=== PATIENT | male | born 1975 | race African-American/Black ===

== ENCOUNTER 2016-10-03 20:20 | Emergency (ER) | payer BC ==
[~2016-10-03] VITALS: Ht 193 cm; Wt 114.6 kg
[~2016-10-03 20:20] MED LIST: INDOCIN25 MG PO; NORCO 7.5/321 TABLET PO
[2016-10-03 20:54] LABS: HEMATOCRIT 44.8 % (38.0-50.0); MCH 29.9 PG (29.0-34.0); MCHC 35.7 G/DL (30.0-36.0); MCV 83.7 FL (86-99); MEAN PLAT.VOLUME 9.9 uM^3 (9.0-12.4); PLATELET COUNT 240 K/uL (156-360); RBC DIS.WIDTH-SD 39.1 % (39-53); RED BLOOD COUNT 5.35 M/uL (4.00-5.50); WHITE BLOOD COUNT 9.7 K/uL (4.1-10.2)
[2016-10-03 21:03] LABS: CHLORIDE 105 mEq/L (99-109); POTASSIUM 3.8 mEq/L (3.7-5.4); SODIUM 140 mEq/L (136-147)
[2016-10-03 21:05] LABS: GLUCOSE 103 mg/dL (70-99)
[2016-10-03 21:06] LABS: ANION GAP 10 MEQ/L (2-14)
[2016-10-03 21:08] LABS: GFR ESTIMATE (CALCULATED) > 59 mL/min/
[2016-10-03 21:09] LABS: UREA NITROGEN (BUN) 13 mg/dL (9-23)
[2016-10-03 21:16] LABS: TROP-I INTERPRETATION NEGATIVE; TROPONIN-I < 0.01 ng/mL (0.0-0.30)
[2016-10-03 23:27] LABS: TROP-I INTERPRETATION NEGATIVE; TROPONIN-I < 0.01 ng/mL (0.0-0.30)
[2016-10-04 02:34] VITALS: BP 137/86
== END 2016-10-04 02:35 | disposition home or self-care (01) ==
LOC: EME 20:20
PROVIDERS: Emergency Medicine
DX: R07.9 Chest pain, unspecified (principal); I10 Essential (primary) hypertension; Z87.891 Personal history of nicotine dependence
CPT/HCPCS: 71020; 71275; 80048; 84484; 85027; 93005; 99281; 99285

== ENCOUNTER 2018-05-11 04:48 | Observation (INO) | payer BC ==
[~2018-05-11] VITALS: Ht 190.5 cm; Wt 124.8 kg
[2018-05-11 05:43] LABS: HEMATOCRIT 40.9 % (38.0-50.0); HEMOGLOBIN 14.3 G/DL (12.5-16.6); MCH 29.7 PG (29.0-34.0); MCV 84.9 FL (86-99); PLATELET COUNT 197 K/uL (156-360); RBC DIS.WIDTH-SD 39.9 % (39-53); RED BLOOD COUNT 4.82 M/uL (4.00-5.50)
[2018-05-11 05:55] LABS: ALBUMIN 4.2 g/dL (3.2-4.8); CHLORIDE 107 mEq/L (99-109); POTASSIUM 4.1 mEq/L (3.7-5.4); SODIUM 141 mEq/L (136-147)
[2018-05-11 05:58] LABS: GLUCOSE 128 mg/dL (70-99); TOTAL PROTEIN 7.3 g/dL (6.4-8.3)
[2018-05-11 06:00] LABS: TOTAL BILIRUBIN 0.6 mg/dL (0.0-1.0)
[2018-05-11 06:01] LABS: ALKALINE PHOSPHATASE 73 IU/L (3-129)
[2018-05-11 06:02] LABS: GFR ESTIMATE (CALCULATED) > 59 mL/min/ (58.99-99999)
[2018-05-11 06:03] LABS: AST (GOT) 41 IU/L (2-34); DIRECT BILIRUBIN 0.2 mg/dL (0.0-0.3); UREA NITROGEN (BUN) 10 mg/dL (9-23)
[2018-05-11 06:04] LABS: ALT (GPT) 50 IU/L (3-49)
[2018-05-11 06:05] LABS: CREATINE KINASE 994 IU/L (1-294)
[2018-05-11 06:11] LABS: TROP-I INTERPRETATION NEGATIVE; TROPONIN-I < 0.01 ng/mL (0.0-0.30)
[2018-05-11 06:56] LABS: LIPASE 47 U/L (1.0-51.0)
[2018-05-11 08:33] LABS: TROP-I INTERPRETATION NEGATIVE; TROPONIN-I < 0.01 ng/mL (0.0-0.30)
[2018-05-11 11:03] VITALS: BP 138/88
[2018-05-11 11:39] LABS: TROP-I INTERPRETATION NEGATIVE; TROPONIN-I < 0.01 ng/mL (0.0-0.30)
[2018-05-11 11:45] VITALS: BP 123/76
[2018-05-11] MEDS ORDERED: OXYCODONE HCL10 MG PO (12:08)
[2018-05-11] MEDS ORDERED: FLEXERIL10 MG PO (12:09)
[2018-05-11 12:44] LABS: HDL CHOLESTEROL 28 MG/DL (Desirable>=40); LDL CHOLESTEROL 70 mg/dL (Desirable<100); NON-HDL CHOLESTEROL 119 mg/dL (Desirable<160); TOTAL CHOLESTEROL 147 mg/dL (Desirable<200); TRIGLYCERIDES 246 MG/DL (Normal: <150)
[2018-05-11 18:14] LABS: TROP-I INTERPRETATION NEGATIVE; TROPONIN-I < 0.01 ng/mL (0.0-0.30)
[2018-05-11 19:00] VITALS: BP 136/80
[2018-05-11 19:56] LABS: BENZODIAZEPINES, URINE SCREEN Negative (200 ng/mL)
[2018-05-11 23:52] LABS: TROP-I INTERPRETATION NEGATIVE; TROPONIN-I < 0.01 ng/mL (0.0-0.30)
[2018-05-12 00:06] VITALS: BP 118/64
[2018-05-12 03:58] VITALS: BP 127/73
[2018-05-12] MEDS ORDERED: ASPIR-LOW81 MG PO (08:45)
[2018-05-12 08:57] VITALS: BP 127/80
[2018-05-12 10:33] LABS: HEMOGLOBIN A1c (GLYCOHEMOGLOB) 5.8 % (Below 5.7)
== END 2018-05-12 09:15 | disposition home or self-care (01) ==
LOC: EME 04:48 → EDOF 08:56 → ENRESERV 09:04 → 4SOUTH 09:43
PROVIDERS: Emergency Medicine; Hospitalist
DX: R07.89 Other chest pain (principal); M62.82 Rhabdomyolysis; I10 Essential (primary) hypertension; Z91.14 Patient's other noncompliance with medication regimen; K21.9 Gastro-esophageal reflux disease without esophagitis; K76.0 Fatty (change of) liver, not elsewhere classified; K80.20 Calculus of gallbladder without cholecystitis without obstruction; E66.9 Obesity, unspecified; R79.89 Other specified abnormal findings of blood chemistry; Z87.891 Personal history of nicotine dependence
CPT/HCPCS: 70450; 71046; 71275; 74177; 80048; 80061; 80076; 80306 90; 82550; 83036; 83690; 84484; 85027; 93005; 99281; 99285; G0378; J1650; J7030